=== PATIENT | female | born 1955 | race African-American/Black ===

== ENCOUNTER 2018-11-17 14:17 | Inpatient (IN) | payer BC ==
[2018-11-17] MEDS ORDERED: NORMAL SALINE 1000 ML 1,000 ML IV ONE (14:47)
--- NOTE | 2018-11-17 14:48 | ER Document Report ---
ED Medical Screen (RME) - General Chief Complaint: High Blood Sugar Stated Complaint: BLOOD SUGAR ISSUES Time Seen by Provider: 11/17/18 14:45 TRAVEL OUTSIDE OF THE [place] 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 states her blood sugar today was elevated ate [place] prior to her arrival here - Related Data Allergies/Adverse Reactions: No Known Allergies Allergy (Verified 11/17/18 14:18) Review of Systems - Review of Systems Constitutional: Other - elevated blood sugar Physical Exam - Vital signs Vitals: Temp Pulse Resp BP Pulse Ox 99.0 F 108 H 18 149/68 H 92 11/17/18 14:27 11/17/18 14:27 11/17/18 14:27 11/17/18 14:27 11/17/18 14:27 - Abdominal Inspection: Morbidly Obese Course - Vital Signs Vital signs: Temp Pulse Resp BP Pulse Ox 99.0 F 108 H 18 149/68 H 92 11/17/18 14:27 11/17/18 14:27 11/17/18 14:27 11/17/18 14:27 11/17/18 14:27
[2018-11-17 15:23] LABS: APPEARANCE,URINE SLIGHTLY-CLOUDY; BILIRUBIN,URINE NEGATIVE (NEGATIVE); COLOR,URINE STRAW; GLUCOSE, URINE >=500 mg/dL (NEGATIVE); KETONES,URINE NEGATIVE (NEGATIVE); LEUKOCYTE ESTERASE,URINE SMALL (NEGATIVE); NITRITE,URINE NEGATIVE (NEGATIVE); PROTEIN,URINE NEGATIVE (NEGATIVE); URINE SPECIFIC GRAVITY 1.029; UROBILINOGEN,URINE NEGATIVE mg/dL (<2.0)
[2018-11-17 15:23] LABS: VENOUS BLOOD BASE EXCESS 1.4 mmol/L; VENOUS BLOOD HCO3 29.6 mmol/L (20-32); VENOUS BLOOD PCO2 63.6 mmHg (35-63); VENOUS BLOOD PH 7.29 (7.30-7.42)
[2018-11-17 15:24] LABS: ABSOLUTE EOSINOPHILS # (AUTO) 0.1 10^3/uL (0.0-0.6); ABSOLUTE MONOCYTES (AUTO) 0.6 10^3/uL (0.1-1.4); ABSOLUTE NEUT (AUTO) 5.9 10^3/uL (1.7-8.2); BASOPHILS % (AUTO) 0.4 % (0-2); EOSINOPHILS % (AUTO) 1.5 % (0-6); HEMATOCRIT 36.9 % (36.0-47.0); HEMOGLOBIN 11.7 g/dL (12.0-15.5); LYMPHOCYTES % (AUTO) 22.9 % (13-45); MEAN CORPUSCULAR HEMOGLOBIN 28.6 pg (27.0-33.4); MEAN CORPUSCULAR HGB CONC 31.7 g/dL (32.0-36.0); MEAN CORPUSCULAR VOLUME 90 fl (80-97); MONOCYTES % (AUTO) 7.2 % (3-13); PLATELET COUNT 304 10^3/uL (150-450); RED CELL DISTRIBUTION WIDTH 14.6 % (11.5-14.0); TOTAL CELLS COUNTED % (AUTO) 100 %; WHITE BLOOD COUNT 8.7 10^3/uL (4.0-10.5)
[2018-11-17 15:40] LABS: ALANINE AMINOTRANSFERASE 17 U/L (9-52); ALBUMIN 3.9 g/dL (3.5-5.0); ALKALINE PHOSPHATASE 92 U/L (38-126); ANION GAP 11 (5-19); ASPARTATE AMINO TRANSFERASE 24 U/L (14-36); BILIRUBIN,DIRECT 0.3 mg/dL (0.0-0.4); BILIRUBIN,TOTAL 0.5 mg/dL (0.2-1.3); BLOOD UREA NITROGEN 13 mg/dL (7-20); CALCIUM 9.6 mg/dL (8.4-10.2); CARBON DIOXIDE 31 mmol/L (22-30); CHLORIDE 96 mmol/L (98-107); LIPASE 255.3 U/L (23-300); POTASSIUM 4.7 mmol/L (3.6-5.0); SODIUM 137.5 mmol/L (137-145); TOTAL PROTEIN 7.3 g/dL (6.3-8.2)
[2018-11-17 15:57] LABS: GLUCOSE 588 mg/dL (75-110)
[2018-11-17] MEDS ORDERED: INSULIN REG, HUMAN 100 UNIT/ML 3 ML VIAL (PYX) IV ONE (16:43)
[2018-11-17] MEDS ORDERED: ONDANSETRON HCL INJ/PF 4 MG/2 ML SDV IV PRN (17:07)
[2018-11-17] MEDS ORDERED: ACETAMINOPHEN 325 MG TABLET PO PRN (17:07)
[2018-11-17] MEDS ORDERED: DEXTROSE 50%-WATER 25 GM/50 ML DISP.SYRIN IV PRN ×2 (17:11)
[2018-11-17] MEDS ORDERED: GLUCAGON,HUMAN RECOMB 1 MG INJ IM PRN (17:11)
[2018-11-17] MEDS ORDERED: DEXTROSE 40% GEL 15 GM TUBE PO PRN ×2 (17:11)
[2018-11-17] MEDS ORDERED: GUAIFENESIN/CODEINE PHOS 100-10 MG/ 5 ML UDC PO PRN (17:12)
--- NOTE | 2018-11-17 17:39 | PDOC H&P ---
History of Present Illness Admission Date/PCP: 11/17/2018 Patient complains of: Cough and right ear pain. History of Present Illness: JEROME THAKUR is a 63 year old female with history of morbid obesity diabetes mellitus hypertension, sleep apnea on CPAP at night, narcolepsy, hyperlipidemia, osteoarthritis and diabetes came to the emergency room with complaints of cough and right ear pain. The ER physician called me for medical admission because the blood sugar is 558. No insulin was given prior to call for the admission. Patient's hemoglobin A1c came back as 10.2. He went to talk to the patient morbidly obese patient comfortably in the chair crying she said she does want to go through these health problems so often. After a few minutes of toxic calm down and she able to give a good history she said she had a nonproductive cough for the last few days. Pain pain scale is 2-3, nagging pain right ear examination by me and the ER physician found no acute pathology. And is to put the patient in telemetry for observation for blood sugar controls. Past Medical History Cardiac Medical History: Reports: Hyperlipidema, Hypertension Endocrine Medical History: Reports: Diabetes Mellitus Type 2 Past Surgical History Past Surgical History: Reports: Section, Hysterectomy Social History Smoking Status: Never Smoker Frequency of Alcohol Use: Rare Hx Recreational Drug Use: No Drugs: None - Advance Directive Resuscitation Status: Do Not Resuscitate Family History Parental Family History Reviewed: Yes - Family history of diabetes mellitus Children Family History Reviewed: Yes Sibling(s) Family History Reviewed.: Yes Medication/Allergy Allergies/Adverse Reactions: No Known Allergies Allergy (Verified 11/17/18 14:18) Review of Systems Constitutional: PRESENT: fatigue, weakness. ABSENT: fever(s), headache(s), night sweats Eyes: ABSENT: visual disturbances Ears: ABSENT: hearing changes Nose, Mouth, and Throat: ABSENT: mouth pain, sore throat Cardiovascular: ABSENT: dyspnea on exertion, orthropnea, palpitations Respiratory: ABSENT: dyspnea, hemoptysis Gastrointestinal: ABSENT: abdominal pain, constipation, nausea, vomiting Genitourinary: PRESENT: other - She is complaining of increased thirst units are associated with increased urination. Neurological: ABSENT: abnormal gait, abnormal speech, confusion, dizziness, focal weakness, syncope Psychiatric: PRESENT: anxiety Physical Exam Vital Signs: Temp Pulse Resp BP Pulse Ox 99.0 F 108 H 16 173/94 H 97 11/17/18 14:27 11/17/18 14:27 11/17/18 15:17 11/17/18 15:17 11/17/18 15:17 Intake & Output 11/16/18 11/17/18 11/18/18 06:59 06:59 06:59 Intake Total 1000 Balance 1000 Weight 144.5 kg General appearance: PRESENT: mild distress, morbidly obese Head exam: PRESENT: atraumatic Eye exam: PRESENT: PERRLA Mouth exam: PRESENT: moist, tongue midline Neck exam: ABSENT: carotid bruit, JVD, lymphadenopathy, thyromegaly Respiratory exam: PRESENT: clear to auscultation tomas. ABSENT: rales, rhonchi, wheezes Cardiovascular exam: PRESENT: tachycardia GI/Abdominal exam: PRESENT: normal bowel sounds, soft. ABSENT: distended, guarding, mass, organolmegaly, rebound, tenderness Extremities exam: PRESENT: +1 edema Neurological exam: PRESENT: alert, awake, oriented to person, oriented to place, oriented to time, oriented to situation, CN II-XII grossly intact. ABSENT: motor sensory deficit Psychiatric exam: PRESENT: appropriate affect, normal mood. ABSENT: homicidal ideation, suicidal ideation Results Laboratory Results: 11/17/18 15:07 11/17/18 15:07 11/17/18 11/17/18 11/17/18 15:00 15:07 15:07 WBC 8.7 RBC 4.10 Hgb 11.7 L Hct 36.9 MCV 90 MCH 28.6 MCHC 31.7 L RDW 14.6 H Plt Count 304 Seg Neutrophils % 68.0 Lymphocytes % 22.9 Monocytes % 7.2 Eosinophils % 1.5 Basophils % 0.4 Absolute Neutrophils 5.9 Absolute Lymphocytes 2.0 Absolute Monocytes 0.6 Absolute Eosinophils 0.1 Absolute Basophils 0.0 VBG pH VBG pCO2 VBG HCO3 VBG Base Excess Sodium 137.5 Potassium 4.7 Chloride 96 L Carbon Dioxide 31 H Anion Gap 11 BUN 13 Creatinine 0.77 Est GFR ( Amer) > 60 Est GFR (Non-Af Amer) > 60 Glucose 588 H* Calcium 9.6 Total Bilirubin 0.5 AST 24 ALT 17 Alkaline Phosphatase 92 Total Protein 7.3 Albumin 3.9 Lipase 255.3 Urine Color STRAW Urine Appearance SLIGHTLY-CLOUDY Urine pH 6.0 Ur Specific [place] 1.029 Urine Protein NEGATIVE Urine Glucose (UA) >=500 H Urine Ketones NEGATIVE Urine Blood SMALL H Urine Nitrite NEGATIVE Ur Leukocyte Esterase SMALL H Urine WBC (Auto) 8 Urine RBC (Auto) 5 11/17/18 15:07 WBC RBC Hgb Hct MCV MCH MCHC RDW Plt Count Seg Neutrophils % Lymphocytes % Monocytes % Eosinophils % Basophils % Absolute Neutrophils Absolute Lymphocytes Absolute Monocytes Absolute Eosinophils Absolute Basophils VBG pH 7.29 L VBG pCO2 63.6 H VBG HCO3 29.6 VBG Base Excess 1.4 Sodium Potassium Chloride Carbon Dioxide Anion Gap BUN Creatinine Est GFR ( Amer) Est GFR (Non-Af Amer) Glucose Calcium Total Bilirubin AST ALT Alkaline Phosphatase Total Protein Albumin Lipase Urine Color Urine Appearance Urine pH Ur Specific [place] Urine Protein Urine Glucose (UA) Urine Ketones Urine Blood Urine Nitrite Ur Leukocyte Esterase Urine WBC (Auto) Urine RBC (Auto) Assessment and Plan - Diagnosis (1) Uncontrolled diabetes mellitus Is this a current diagnosis for this admission?: Yes Plan: 11/17/2018-patient's blood sugar in the ER 558 .patient is going to be admitted to telemetry as observation, placed on diabetic diet ,dietary consult was requested. Diet exercise weight loss lifestyle modifications are discussed with the patient. Started on insulin sliding scale before meals and at bedtime and also started on Lantus 40 units twice a day. GI prophylaxis DVT prophylaxis implemented started on aspirin and atorvastatin. And JAMARI inhibitor lisinopril was also started. Patient says she is very much compliant with her diabetic medications at home. Globin A1c in the ER is 10.2. (2) Uncontrolled hypertension Is this a current diagnosis for this admission?: Yes Plan: 11/17/2018-latest blood pressure in the ER is 173/94 with heart rate of 108. Patient has history of hypertension. To start on lisinopril 10 mg p.o. daily. Check the blood pressures on regular basis. (3) Sleep apnea Is this a current diagnosis for this admission?: Yes Plan: 11/17/2018-patient is given the history of obstructive sleep apnea using CPAP at night. Plan to resume the sleep Orders during the hospital stay. (4) Morbid obesity with BMI of 40.0-44.9, adult Is this a current diagnosis for this admission?: No Plan: 11/17/2018-morbid obesity BMI is more than 40. Diet exercise weight loss lifestyle modifications are discussed with the patient. Dietary consult was requested. - Time Time Spent with patient: 15-24 minutes Anticipated discharge: Home
--- NOTE | 2018-11-17 17:52 | RADIOLOGY REPORT (SQ) ---
EXAM DESCRIPTION: CHEST 2 VIEWS COMPLETED DATE/TIME: 11/17/2018 5:48 pm REASON FOR STUDY: shortness of breath COMPARISON: None. EXAM PARAMETERS: NUMBER OF VIEWS: two views TECHNIQUE: Digital Frontal and Lateral radiographic views of the chest acquired. RADIATION DOSE: NA LIMITATIONS: none FINDINGS: LUNGS AND PLEURA: No opacities, masses or pneumothorax. No pleural effusion. MEDIASTINUM AND HILAR STRUCTURES: No masses or contour abnormalities. HEART AND VASCULAR STRUCTURES: Heart normal size. No evidence for failure. BONES: No acute findings. HARDWARE: None in the chest. OTHER: No other significant finding. IMPRESSION: NO ACUTE RADIOGRAPHIC FINDING IN THE CHEST. TECHNICAL DOCUMENTATION: JOB ID: [id number] [employer]- All Rights Reserved Reading location - IP/workstation name: [email or web address]
[2018-11-17] MEDS ORDERED: INSULIN GLARGINE,HUM.REC.ANLOG 1,000 UNIT/10 ML VIAL SUBCUT SCH (18:00)
[2018-11-17] MEDS ORDERED: INSULIN GLARGINE,HUM.REC.ANLOG 1,000 UNIT/10 ML VIAL (PYX) SUBCUT PRN (18:14)
[2018-11-17] MEDS ORDERED: INSULIN GLARGINE,HUM.REC.ANLOG 1,000 UNIT/10 ML VIAL SUBCUT ONE (18:30)
[2018-11-17] MEDS: DOCUSATE SODIUM 100 MG CAPSULE PO SCH (18:37)
[2018-11-17] MEDS ORDERED: LISINOPRIL 10 MG TABLET PO ONE (19:00)
--- NOTE | 2018-11-17 19:12 | ER Document Report ---
Entered by MARSHAL YBARRA SCRIBE 11/17/18 1514 Acting as scribe for:KUNAL GRIER MD ED Blood Sugar Problem - General Chief Complaint: High Blood Sugar Stated Complaint: BLOOD SUGAR ISSUES Time Seen by Provider: 11/17/18 14:45 Mode of Arrival: Ambulatory Information source: Patient Notes: Patient is a 63 year old female with HTN, hyperlipidemia, type 2 diabetes, presents to the emergency department complaining an elevated blood sugar. Patient states for the last 1.5 weeks she has had frequent urination and increased thirst. 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 Patient is currently prescribed Metformin, glucoside, victoza and provigil. She states that she used to be on Lantus, but it caused her to itch at the injection site and other unacceptable side effects. TRAVEL OUTSIDE OF THE [place] IN LAST 30 DAYS: No - Related Data Allergies/Adverse Reactions: No Known Allergies Allergy (Verified 11/17/18 14:18) Past Medical History - General Information source: Patient - Social History Smoking Status: Former Smoker Cigarette use (# per day): No Chew tobacco use (# tins/day): No Frequency of alcohol use: Occasional Drug Abuse: None Family History: Reviewed & Not Pertinent Patient has suicidal ideation: No Patient has homicidal ideation: No - Past Medical History Cardiac Medical History: Reports: Hx Hypercholesterolemia, Hx Hypertension Endocrine Medical History: Reports: Hx Diabetes Mellitus Type 2 Past Surgical History: Reports: Hx Section - x3, Hx Hysterectomy Review of Systems - Review of Systems Constitutional: See HPI EENT: No symptoms reported Cardiovascular: No symptoms reported Respiratory: No symptoms reported Gastrointestinal: No symptoms reported Genitourinary: See HPI, Frequency Female Genitourinary: No symptoms reported Musculoskeletal: No symptoms reported Skin: No symptoms reported Hematologic/Lymphatic: No symptoms reported Neurological/Psychological: No symptoms reported -: Yes All other systems reviewed and negative Physical Exam - Vital signs Vitals: Temp Pulse Resp BP Pulse Ox 99.0 F 108 H 18 149/68 H 92 11/17/18 14:27 11/17/18 14:27 11/17/18 14:27 11/17/18 14:27 11/17/18 14:27 - Notes Notes: GENERAL: Alert, interacts well. No acute distress. HEAD: Normocephalic, atraumatic. EYES: Pupils equal, round, and reactive to light. Extraocular movements intact. ENT: Oral mucosa moist, tongue midline. NECK: Full range of motion. Supple. Trachea midline. LUNGS: Clear to auscultation bilaterally, no wheezes, rales, or rhonchi. No respiratory distress. HEART: Regular rate and rhythm. No murmurs, gallops, or rubs. ABDOMEN: Soft, morbidly obese, non-tender. Non-distended. Bowel sounds present in all 4 quadrants. No guarding, rigidity, or rebound. EXTREMITIES: Moves all 4 extremities spontaneously. NEUROLOGICAL: Alert and oriented x3. Normal speech. PSYCH: Normal affect, normal mood. SKIN: Warm, dry, normal turgor. No rashes or lesions noted. Course - Vital Signs Vital signs: Temp Pulse Resp BP Pulse Ox 99.0 F 108 H 16 173/94 H 97 11/17/18 14:27 11/17/18 14:27 11/17/18 15:17 11/17/18 15:17 11/17/18 15:17 - Laboratory Result Diagrams: 11/17/18 15:07 11/17/18 15:07 Laboratory results interpreted by me: 11/17/18 11/17/18 11/17/18 15:00 15:07 15:07 Hgb 11.7 L MCHC 31.7 L RDW 14.6 H VBG pH VBG pCO2 Chloride 96 L Carbon Dioxide 31 H Glucose 588 H* Hemoglobin A1c % Urine Glucose (UA) >=500 H Urine Blood SMALL H Ur Leukocyte Esterase SMALL H 11/17/18 11/17/18 15:07 15:07 Hgb MCHC RDW VBG pH 7.29 L VBG pCO2 63.6 H Chloride Carbon Dioxide Glucose Hemoglobin A1c % 10.2 H Urine Glucose (UA) Urine Blood Ur Leukocyte Esterase - EKG Interpretation by Mo EKG shows normal: Sinus rhythm, [place], Intervals, QRS Complexes, ST-T Waves Rate: Normal - 94 Rhythm: NSR, APC's Monroe/QRS: Left axis deviation - Consults Dr. 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
[2018-11-17] MEDS: FAMOTIDINE 20 MG TABLET PO SCH (21:42)
[2018-11-17] MEDS: ATORVASTATIN CALCIUM 10 MG TABLET PO SCH (21:43)
[2018-11-17] MEDS: INSULIN REG, HUMAN 100 UNIT/ML 3 ML VIAL (PYX) SUBCUT SCH (21:43)
--- NOTE | 2018-11-17 23:59 | EKG REPORT ---
SEVERITY:- BORDERLINE ECG - SINUS RHYTHM ATRIAL PREMATURE COMPLEX BORDERLINE LEFT AXIS DEVIATION CONSIDER ANTERIOR INFARCT : Confirmed by: Lindsey Alejandre 17-Nov-2018 23:58:54
[2018-11-18 05:12] LABS: ABSOLUTE EOSINOPHILS # (AUTO) 0.1 10^3/uL (0.0-0.6); ABSOLUTE LYMPHOCYTES (AUTO) 2.5 10^3/uL (0.5-4.7); ABSOLUTE MONOCYTES (AUTO) 0.9 10^3/uL (0.1-1.4); ABSOLUTE NEUT (AUTO) 5.4 10^3/uL (1.7-8.2); BASOPHILS % (AUTO) 0.5 % (0-2); EOSINOPHILS % (AUTO) 1.7 % (0-6); HEMATOCRIT 34.2 % (36.0-47.0); HEMOGLOBIN 11.1 g/dL (12.0-15.5); LYMPHOCYTES % (AUTO) 27.9 % (13-45); MEAN CORPUSCULAR HEMOGLOBIN 28.4 pg (27.0-33.4); MEAN CORPUSCULAR HGB CONC 32.4 g/dL (32.0-36.0); MEAN CORPUSCULAR VOLUME 88 fl (80-97); MONOCYTES % (AUTO) 9.6 % (3-13); PLATELET COUNT 267 10^3/uL (150-450); RED BLOOD COUNT 3.91 10^6/uL (3.72-5.28); RED CELL DISTRIBUTION WIDTH 14.6 % (11.5-14.0); SEGMENTED NEUTROPHILS % (AUTO) 60.3 % (42-78); TOTAL CELLS COUNTED % (AUTO) 100 %; WHITE BLOOD COUNT 8.9 10^3/uL (4.0-10.5)
[2018-11-18 05:35] LABS: ALANINE AMINOTRANSFERASE 17 U/L (9-52); ALBUMIN 3.2 g/dL (3.5-5.0); ALKALINE PHOSPHATASE 82 U/L (38-126); ANION GAP 9 (5-19); ASPARTATE AMINO TRANSFERASE 12 U/L (14-36); BILIRUBIN,DIRECT 0.2 mg/dL (0.0-0.4); BILIRUBIN,TOTAL 0.3 mg/dL (0.2-1.3); BLOOD UREA NITROGEN 12 mg/dL (7-20); CALCIUM 8.9 mg/dL (8.4-10.2); CARBON DIOXIDE 26 mmol/L (22-30); CHLORIDE 104 mmol/L (98-107); CHOLESTEROL 172.12 mg/dL (0-200); CREATINE KINASE 54 U/L (30-135); GLUCOSE 317 mg/dL (75-110); POTASSIUM 3.9 mmol/L (3.6-5.0); TOTAL PROTEIN 6.1 g/dL (6.3-8.2); TRIGLYCERIDES 127 mg/dL (<150)
[2018-11-18 05:41] LABS: CREATINE KINASE MB 0.48 ng/mL (<4.55)
[2018-11-18 05:46] LABS: DIRECT LDL 109 mg/dL (<100)
[2018-11-18] MEDS: INSULIN REG, HUMAN 100 UNIT/ML 3 ML VIAL (PYX) SUBCUT SCH ×4 (07:46→23:00)
[2018-11-18] MEDS: DOCUSATE SODIUM 100 MG CAPSULE PO SCH ×2 (09:36→17:05)
[2018-11-18] MEDS: FUROSEMIDE 40 MG TABLET PO SCH (09:36)
[2018-11-18] MEDS: ASPIRIN 81 MG TABLET, CHEWABLE PO SCH (09:36)
[2018-11-18] MEDS: FAMOTIDINE 20 MG TABLET PO SCH ×2 (09:37→23:00)
[2018-11-18] MEDS: ENOXAPARIN SODIUM INJ 40 MG/0.4 ML DISP.SYRIN SUBCUT SCH (09:37)
[2018-11-18] MEDS: LISINOPRIL 10 MG TABLET PO SCH (09:37)
[2018-11-18] MEDS: INSULIN GLARGINE,HUM.REC.ANLOG 1,000 UNIT/10 ML VIAL SUBCUT SCH ×2 (11:35→17:05)
--- NOTE | 2018-11-18 13:07 | PDOC PROGRESS REPORT ---
Subjective Progress Note for:: 11/18/18 Subjective:: No adverse events overnight. She was resting on CPAP whenever I came into the room. Blood sugars have been in the low 300s for the most part. She was not on insulin previously but was on 2 or 3 different oral hypoglycemics. Blood pressures have improved some. Reason For Visit: UNCONTROLLED DM Physical Exam Vital Signs: Temp Pulse Resp BP Pulse Ox 98.1 F 105 H 21 H 144/78 H 98 11/18/18 11:00 11/18/18 11:00 11/18/18 11:00 11/18/18 11:00 11/18/18 11:00 Intake & Output 11/17/18 11/18/18 11/19/18 06:59 06:59 06:59 Intake Total 1120 Balance 1120 Weight 144.5 kg General appearance: PRESENT: mild distress, morbidly obese Neck exam: ABSENT: carotid bruit, JVD, lymphadenopathy, thyromegaly Respiratory exam: PRESENT: clear to auscultation tomas. ABSENT: rales, rhonchi, wheezes Cardiovascular exam: PRESENT: RRR S1 S2 GI/Abdominal exam: PRESENT: normal bowel sounds, soft. ABSENT: distended, guarding, mass, organolmegaly, rebound, tenderness Extremities exam: PRESENT: +1 edema Neurological exam: PRESENT: alert, awake, oriented to person, oriented to place, oriented to time, oriented to situation Results Laboratory Results: 11/18/18 04:58 11/18/18 04:58 11/17/18 11/17/18 11/17/18 15:00 15:07 15:07 WBC 8.7 RBC 4.10 Hgb 11.7 L Hct 36.9 MCV 90 MCH 28.6 MCHC 31.7 L RDW 14.6 H Plt Count 304 Seg Neutrophils % 68.0 Lymphocytes % 22.9 Monocytes % 7.2 Eosinophils % 1.5 Basophils % 0.4 Absolute Neutrophils 5.9 Absolute Lymphocytes 2.0 Absolute Monocytes 0.6 Absolute Eosinophils 0.1 Absolute Basophils 0.0 VBG pH VBG pCO2 VBG HCO3 VBG Base Excess Sodium 137.5 Potassium 4.7 Chloride 96 L Carbon Dioxide 31 H Anion Gap 11 BUN 13 Creatinine 0.77 Est GFR ( Amer) > 60 Est GFR (Non-Af Amer) > 60 Glucose 588 H* Calcium 9.6 Magnesium Total Bilirubin 0.5 AST 24 ALT 17 Alkaline Phosphatase 92 Total Protein 7.3 Albumin 3.9 Triglycerides Cholesterol LDL Cholesterol Direct VLDL Cholesterol HDL Cholesterol Lipase 255.3 TSH Urine Color STRAW Urine Appearance SLIGHTLY-CLOUDY Urine pH 6.0 Ur Specific [place] 1.029 Urine Protein NEGATIVE Urine Glucose (UA) >=500 H Urine Ketones NEGATIVE Urine Blood SMALL H Urine Nitrite NEGATIVE Ur Leukocyte Esterase SMALL H Urine WBC (Auto) 8 Urine RBC (Auto) 5 11/17/18 11/18/18 11/18/18 15:07 04:58 04:58 WBC 8.9 RBC 3.91 Hgb 11.1 L Hct 34.2 L MCV 88 MCH 28.4 MCHC 32.4 RDW 14.6 H Plt Count 267 Seg Neutrophils % 60.3 Lymphocytes % 27.9 Monocytes % 9.6 Eosinophils % 1.7 Basophils % 0.5 Absolute Neutrophils 5.4 Absolute Lymphocytes 2.5 Absolute Monocytes 0.9 Absolute Eosinophils 0.1 Absolute Basophils 0.0 VBG pH 7.29 L VBG pCO2 63.6 H VBG HCO3 29.6 VBG Base Excess 1.4 Sodium 139.0 Potassium 3.9 Chloride 104 Carbon Dioxide 26 Anion Gap 9 BUN 12 Creatinine 0.64 Est GFR ( Amer) > 60 Est GFR (Non-Af Amer) > 60 Glucose 317 H Calcium 8.9 Magnesium 1.8 Total Bilirubin 0.3 AST 12 L ALT 17 Alkaline Phosphatase 82 Total Protein 6.1 L Albumin 3.2 L Triglycerides 127 Cholesterol 172.12 LDL Cholesterol Direct 109 H VLDL Cholesterol 25.0 HDL Cholesterol 51 Lipase TSH Urine Color Urine Appearance Urine pH Ur Specific [place] Urine Protein Urine Glucose (UA) Urine Ketones Urine Blood Urine Nitrite Ur Leukocyte Esterase Urine WBC (Auto) Urine RBC (Auto) 11/18/18 04:58 WBC RBC Hgb Hct MCV MCH MCHC RDW Plt Count Seg Neutrophils % Lymphocytes % Monocytes % Eosinophils % Basophils % Absolute Neutrophils Absolute Lymphocytes Absolute Monocytes Absolute Eosinophils Absolute Basophils VBG pH VBG pCO2 VBG HCO3 VBG Base Excess Sodium Potassium Chloride Carbon Dioxide Anion Gap BUN Creatinine Est GFR ( Amer) Est GFR (Non-Af Amer) Glucose Calcium Magnesium Total Bilirubin AST ALT Alkaline Phosphatase Total Protein Albumin Triglycerides Cholesterol LDL Cholesterol Direct VLDL Cholesterol HDL Cholesterol Lipase TSH 1.54 Urine Color Urine Appearance Urine pH Ur Specific [place] Urine Protein Urine Glucose (UA) Urine Ketones Urine Blood Urine Nitrite Ur Leukocyte Esterase Urine WBC (Auto) Urine RBC (Auto) 11/17/18 15:00 Clean Catch Midstream Urine Culture - Final Group B Beta Streptococcus 11/17/18 11/17/18 11/17/18 15:07 15:07 20:50 Creatine Kinase 59 67 CK-MB (CK-2) 0.50 NT-Pro-B Natriuret Pep 11/17/18 11/18/18 11/18/18 20:50 04:58 04:58 Creatine Kinase 54 CK-MB (CK-2) 0.54 0.48 NT-Pro-B Natriuret Pep 64 Impressions: Chest X-Ray 11/17/18 00:00 IMPRESSION: NO ACUTE RADIOGRAPHIC FINDING IN THE CHEST. Assessment and Plan - Diagnosis (1) Type 2 diabetes mellitus with hyperglycemia Qualifiers: Diabetes mellitus [facility] insulin use: without [facility] use Qualified Code(s): E11.65 - Type 2 diabetes mellitus with hyperglycemia Is this a current diagnosis for this admission?: Yes Plan: We have started on Lantus twice daily with a sliding scale. I told her that she will probably need to continue on insulin after discharge because her hemoglobin A1c was 10 and she already says she is having some changes in sensation in her feet. She does not have a primary care provider and I strongly encouraged her to make that her top priority when she is discharged. (2) Hypertension Qualifiers: Hypertension type: essential hypertension Qualified Code(s): I10 - Essential (primary) hypertension Is this a current diagnosis for this admission?: Yes Plan: She was started on lisinopril her blood pressures have improved. (3) Morbid obesity with BMI of 40.0-44.9, adult Is this a current diagnosis for this admission?: Yes Plan: Strongly encouraged lifestyle modification (4) Sleep apnea Is this a current diagnosis for this admission?: Yes Plan: Continue CPAP at night - Time Time Spent with patient: 25-34 minutes
[2018-11-18] MEDS: ATORVASTATIN CALCIUM 10 MG TABLET PO SCH (23:00)
[2018-11-19] MEDS: HYDROCODONE/ACETAMINOPHEN 10-325 MG TABLET PO PRN (04:27)
[2018-11-19] MEDS: INSULIN REG, HUMAN 100 UNIT/ML 3 ML VIAL (PYX) SUBCUT SCH ×4 (07:37→22:03)
[2018-11-19] MEDS ORDERED: GLUCAGON,HUMAN RECOMB 1 MG INJ IM PRN (08:01)
[2018-11-19] MEDS ORDERED: DEXTROSE 40% GEL 15 GM TUBE PO PRN ×2 (08:01)
[2018-11-19] MEDS ORDERED: DEXTROSE 50%-WATER 25 GM/50 ML DISP.SYRIN IV PRN ×2 (08:01)
[2018-11-19] MEDS: INSULIN GLARGINE,HUM.REC.ANLOG 1,000 UNIT/10 ML VIAL SUBCUT SCH ×2 (09:50→17:20)
[2018-11-19] MEDS: FAMOTIDINE 20 MG TABLET PO SCH ×2 (09:51→22:00)
[2018-11-19] MEDS: FUROSEMIDE 40 MG TABLET PO SCH (09:51)
[2018-11-19] MEDS: ASPIRIN 81 MG TABLET, CHEWABLE PO SCH (09:51)
[2018-11-19] MEDS: METOPROLOL TARTRATE 25 MG TABLET PO SCH ×2 (09:51→22:00)
[2018-11-19] MEDS: DOCUSATE SODIUM 100 MG CAPSULE PO SCH ×2 (09:51→17:20)
[2018-11-19] MEDS: LISINOPRIL 10 MG TABLET PO SCH (09:51)
[2018-11-19] MEDS: ENOXAPARIN SODIUM INJ 40 MG/0.4 ML DISP.SYRIN SUBCUT SCH (09:52)
[2018-11-19] MEDS: INSULIN LISPRO 100 UNIT/ML 3 ML VIAL SUBCUT SCH ×2 (11:43→16:24)
--- NOTE | 2018-11-19 21:00 | PDOC PROGRESS REPORT ---
Subjective Progress Note for:: 11/19/18 Subjective:: The patient is resting in her bed. She states she still has markedly uncontrolled blood sugars and overall just is not feeling well. She denies fever or shaking chills. No chest pain or heart palpitations. No nausea vomiting or diarrhea. No urinary complaints. Reason For Visit: UNCONTROLLED DM Physical Exam Vital Signs: Temp Pulse Resp BP Pulse Ox 98.5 F 68 20 119/82 95 11/19/18 19:54 11/19/18 19:54 11/19/18 16:03 11/19/18 19:54 11/19/18 19:54 Intake & Output 11/18/18 11/19/18 11/20/18 06:59 06:59 06:59 Intake Total 1120 2104 1328 Balance 1120 2104 1328 Weight 144.5 kg 143.8 kg General appearance: PRESENT: no acute distress, morbidly obese, well-nourished Head exam: PRESENT: atraumatic, normocephalic Mouth exam: PRESENT: moist, tongue midline Respiratory exam: PRESENT: decreased breath sounds, other - This exam was hindered due to her body habitus Cardiovascular exam: PRESENT: RRR. ABSENT: diastolic murmur, rubs, systolic murmur GI/Abdominal exam: PRESENT: normal bowel sounds, soft. ABSENT: distended, guarding, mass, organolmegaly, rebound, tenderness Rectal exam: PRESENT: deferred Extremities exam: PRESENT: full ROM. ABSENT: calf tenderness, clubbing, pedal edema Neurological exam: PRESENT: alert, awake, oriented to person, oriented to place, oriented to time, oriented to situation, CN II-XII grossly intact. ABSENT: motor sensory deficit Psychiatric exam: PRESENT: appropriate affect, normal mood. ABSENT: homicidal ideation, suicidal ideation Skin exam: PRESENT: dry, intact, warm. ABSENT: cyanosis, rash Results Laboratory Results: 11/18/18 04:58 11/18/18 04:58 11/17/18 11/17/18 11/17/18 15:07 15:07 20:50 Creatine Kinase 59 67 CK-MB (CK-2) 0.50 NT-Pro-B Natriuret Pep 11/17/18 11/18/18 11/18/18 20:50 04:58 04:58 Creatine Kinase 54 CK-MB (CK-2) 0.54 0.48 NT-Pro-B Natriuret Pep 64 Impressions: Chest X-Ray 11/17/18 00:00 IMPRESSION: NO ACUTE RADIOGRAPHIC FINDING IN THE CHEST. Assessment and Plan - Diagnosis (1) Uncontrolled diabetes mellitus Is this a current diagnosis for this admission?: Yes Plan: The patient had been started on 30 units of Lantus. Blood sugars were still remarkably uncontrolled. I am going to add 10 units of NovoLog 3 times daily AC. Overall the patient has just moved to this area. She does not have an established physician and I feel like it is important to get her blood sugar at least under more reasonable control prior to getting her out of here. I am g oipola to get the discharge planners to work on getting her set up with a physician. She just moved to this area this past week. (2) Uncontrolled hypertension Is this a current diagnosis for this admission?: Yes Plan: Improving. Continue to titrate medications as needed. (3) Morbid obesity with BMI of 50.0-59.9, adult Is this a current diagnosis for this admission?: Yes Plan: Certainly she needs to lose weight and this is going to contribute to all of her issues. (4) Sleep apnea Is this a current diagnosis for this admission?: Yes Plan: Continue CPAP (5) Anemia Is this a current diagnosis for this admission?: Yes Plan: Likely due to chronic disease. Her hemoglobin is stable (6) Do not resuscitate Is this a current diagnosis for this admission?: Yes - Time Time Spent with patient: 35 or more minutes - Inpatient Certification Medical Necessity: Other - The patient will be changed to inpatient status. She has super morbid obesity and is at high risk of an adverse event. She has not yet established care with primary care and her blood sugars have been markedly uncontrolled. I am adding mealtime NovoLog and I want to make sure that the patient can inject her own insulin and that her blood sugar is not too high to cause a significant adverse event in the outpatient setting. Hopefully she can go home tomorrow.
[2018-11-19] MEDS: ATORVASTATIN CALCIUM 10 MG TABLET PO SCH (22:01)
[2018-11-20] MEDS: HYDROCODONE/ACETAMINOPHEN 10-325 MG TABLET PO PRN (03:41)
[2018-11-20 06:18] LABS: ABSOLUTE EOSINOPHILS # (AUTO) 0.1 10^3/uL (0.0-0.6); ABSOLUTE LYMPHOCYTES (AUTO) 2.1 10^3/uL (0.5-4.7); ABSOLUTE MONOCYTES (AUTO) 0.6 10^3/uL (0.1-1.4); ABSOLUTE NEUT (AUTO) 3.8 10^3/uL (1.7-8.2); BASOPHILS % (AUTO) 0.5 % (0-2); EOSINOPHILS % (AUTO) 1.8 % (0-6); HEMATOCRIT 33.3 % (36.0-47.0); HEMOGLOBIN 10.8 g/dL (12.0-15.5); LYMPHOCYTES % (AUTO) 31.5 % (13-45); MEAN CORPUSCULAR HEMOGLOBIN 28.4 pg (27.0-33.4); MEAN CORPUSCULAR HGB CONC 32.6 g/dL (32.0-36.0); MEAN CORPUSCULAR VOLUME 87 fl (80-97); MONOCYTES % (AUTO) 9.2 % (3-13); PLATELET COUNT 261 10^3/uL (150-450); RED BLOOD COUNT 3.82 10^6/uL (3.72-5.28); RED CELL DISTRIBUTION WIDTH 14.2 % (11.5-14.0); TOTAL CELLS COUNTED % (AUTO) 100 %; WHITE BLOOD COUNT 6.6 10^3/uL (4.0-10.5)
[2018-11-20 06:46] LABS: ALBUMIN 3.1 g/dL (3.5-5.0); ANION GAP 7 (5-19); BLOOD UREA NITROGEN 20 mg/dL (7-20); CALCIUM 9.1 mg/dL (8.4-10.2); CARBON DIOXIDE 28 mmol/L (22-30); CHLORIDE 102 mmol/L (98-107); GLUCOSE 259 mg/dL (75-110); PHOSPHORUS 3.8 mg/dL (2.5-4.5); POTASSIUM 4.1 mmol/L (3.6-5.0); SODIUM 136.8 mmol/L (137-145)
[2018-11-20] MEDS: INSULIN REG, HUMAN 100 UNIT/ML 3 ML VIAL (PYX) SUBCUT SCH ×2 (10:08→11:27)
[2018-11-20] MEDS: INSULIN LISPRO 100 UNIT/ML 3 ML VIAL SUBCUT SCH ×2 (10:08→11:28)
[2018-11-20] MEDS: METOPROLOL TARTRATE 25 MG TABLET PO SCH (10:09)
[2018-11-20] MEDS: FUROSEMIDE 40 MG TABLET PO SCH (10:09)
[2018-11-20] MEDS: DOCUSATE SODIUM 100 MG CAPSULE PO SCH (10:09)
[2018-11-20] MEDS: LISINOPRIL 10 MG TABLET PO SCH (10:09)
[2018-11-20] MEDS: FAMOTIDINE 20 MG TABLET PO SCH (10:09)
[2018-11-20] MEDS: ASPIRIN 81 MG TABLET, CHEWABLE PO SCH (10:10)
[2018-11-20] MEDS: ENOXAPARIN SODIUM INJ 40 MG/0.4 ML DISP.SYRIN SUBCUT SCH (10:10)
--- NOTE | 2018-11-20 11:30 | PDOC DISCHARGE SUMMARY ---
General - Admit/Disc Date/PCP Admission Date/Primary Care Provider: 11/19/18 16:12 We are setting her up with a new tactical/mobile watch officer at discharge. I am going to set her up with Dr. Oliver from pulmonology as she needs a new sleep study. Discharge Date: 11/20/18 - Discharge Diagnosis (1) Uncontrolled diabetes mellitus Is this a current diagnosis for this admission?: Yes Summary: The patient was reinitiated on Lantus 30 units. She states that she used to take Lantus but has not taken it in quite some time which may be why her blood sugar was so uncontrolled. After initiating this dose her blood sugars were still quite high. I added Humalog 10 units 3 times daily before meals and we have fairly good control of her blood sugars. Going to stop her oral medications as she was on metformin, Actos and glipizide with poor control. I will continue her Januvia (2) Uncontrolled hypertension Is this a current diagnosis for this admission?: Yes Summary: Her regimen has been titrated and I have written new prescriptions at discharge. She has just moved to this area from [place] and does not yet have a primary care. We will be assigning one at discharge. Her blood pressures are well controlled at discharge (3) Morbid obesity with BMI of 50.0-59.9, adult Is this a current diagnosis for this admission?: Yes Summary: Certainly it would be of benefit for her to lose weight. She is going to have increasing problems due to her super morbid obesity. (4) Sleep apnea Is this a current diagnosis for this admission?: Yes Summary: She has a CPAP machine at home that she uses religiously however it is about to go out as it is several years old. She needs a new sleep study and machine. I am going to set her up with Dr. Oliver at discharge. (5) Anemia Is this a current diagnosis for this admission?: Yes Summary: This is quite mild and likely an anemia of chronic disease. (6) Do not resuscitate Is this a current diagnosis for this admission?: Yes - Additional Information Resuscitation Status: Do Not Resuscitate Discharge Diet: Diabetic Discharge Activity: Activity As Tolerated, Balance Activity w/Rest, Slowly Increase Activity, Walk Frequently Prescriptions: Insulin Glargine,Hum.rec.anlog [Lantus Insulin 100 Unit/1 ml 10 ml] 30 unit SQ QHS #1 unit Blood-Glucose Meter [Blood Glucose Meter] 1 each MC AC #1 each Docusate Sodium [Colace 100 mg Capsule] 100 mg PO BID #60 capsule Furosemide [Lasix 40 mg Tablet] 40 mg PO DAILY #30 tablet Insulin Lispro [Humalog Insulin (Lispro) 100 unit/mL] 10 unit SUBCUT AC #1 vial Lisinopril [Prinivil 10 mg Tablet] 10 mg PO DAILY #30 tablet Metoprolol Tartrate [Lopressor 25 mg Tablet] 25 mg PO Q12 #60 tablet Home Medications: Albuterol Sulfate [Proair HFA Inhalation Aerosol 8.5 gm MDI] 2 puff IH Q6HP PRN 11/18/18 Ergocalciferol (Vitamin D2) [Drisdol 50,000 unit (1.25MG) Capsule] 50,000 unit PO MO@1000 11/18/18 Liraglutide [Victoza 2-Pablo] 1.8 mg SQ DAILY 11/18/18 Pravastatin Sodium [Pravachol] 40 mg PO DAILY 11/18/18 Tramadol HCl [Ultram 50 mg Tablet] 50 mg PO Q12HP PRN 11/18/18 Aspirin [Aspirin 81 mg Chewable Tablet] 81 mg PO DAILY tab.chew 11/20/18 Blood-Glucose Meter [Blood Glucose Meter] 1 each AC #1 each 11/20/18 Docusate Sodium [Colace 100 mg Capsule] 100 mg PO BID #60 capsule 11/20/18 Furosemide [Lasix 40 mg Tablet] 40 mg PO DAILY #30 tablet 11/20/18 Insulin Glargine,Hum.rec.anlog [Lantus Insulin 100 Unit/1 ml 10 ml] 30 unit SQ QHS #1 unit 11/20/18 Insulin Lispro [Humalog Insulin (Lispro) 100 unit/mL] 10 unit SUBCUT AC #1 vial 11/20/18 Lisinopril [Prinivil 10 mg Tablet] 10 mg PO DAILY #30 tablet 11/20/18 Metoprolol Tartrate [Lopressor 25 mg Tablet] 25 mg PO Q12 #60 tablet 11/20/18 History of Present Illness History of Present Illness: JEROME THAKUR is a 63 year old female who presented to the emergency room with cough and ear pain. During the course of her workup she was found to have severe hyperglycemia. Hospital Course Hospital Course: The patient is a 63-year-old -[place] female with morbid obesity, underlying diabetes mellitus, hypertension and sleep apnea on CPAP. She has known narcolepsy, hyperlipidemia, osteoarthritis. She presented to the emergency room with cough and right ear pain. She was referred for admission as she was found to have a blood sugar of 558. Hemoglobin A1c came back at 10.2. Interim the patient did not have any further issues with cough after she was admitted to the hospital. Her blood pressure was markedly uncontrolled as well and her medications were titrated. She was started back on Lantus and we got her blood sugars under better control when we added short acting mealtime insulin as well. Her blood sugars are stable on the day of discharge. Her blood pressure is much is improved as well. I am going to have her licensed clinical social worker set her up with a new primary care physician and I am also going to have her follow-up with Dr. Oliver as an outpatient as she states her machine is working but has quite a few issues. She likely will need a new sleep study and new machine when she gets out of the hospital. At this point maximum hospital benefit has been reached. The patient will be discharged today in stable condition. Physical Exam Vital Signs: Temp Pulse Resp BP Pulse Ox 98.8 F 73 20 125/47 L 100 11/20/18 08:00 11/20/18 08:00 11/20/18 08:00 11/20/18 08:00 11/20/18 08:00 Intake & Output 11/19/18 11/20/18 11/21/18 06:59 06:59 06:59 Intake Total 2104 1828 Balance 2104 1828 Weight 143.8 kg 144.7 kg General appearance: PRESENT: morbidly obese Head exam: PRESENT: atraumatic, normocephalic Respiratory exam: PRESENT: clear to auscultation tomas, decreased breath sounds - She is diminished in the lower bases bilaterally. ABSENT: rales, rhonchi, wheezes Cardiovascular exam: PRESENT: RRR. ABSENT: diastolic murmur, rubs, systolic murmur GI/Abdominal exam: PRESENT: normal bowel sounds, soft. ABSENT: distended, guarding, mass, organolmegaly, rebound, tenderness Rectal exam: PRESENT: deferred Extremities exam: PRESENT: full ROM. ABSENT: calf tenderness, clubbing, pedal edema Neurological exam: PRESENT: alert, awake, oriented to person, oriented to place, oriented to time, oriented to situation, CN II-XII grossly intact. ABSENT: motor sensory deficit Psychiatric exam: PRESENT: appropriate affect, normal mood. ABSENT: homicidal ideation, suicidal ideation Skin exam: PRESENT: dry, intact, warm. ABSENT: cyanosis, rash Results Laboratory Results: 11/20/18 06:02 11/20/18 06:02 11/20/18 11/20/18 06:02 06:02 WBC 6.6 RBC 3.82 Hgb 10.8 L Hct 33.3 L MCV 87 MCH 28.4 MCHC 32.6 RDW 14.2 H Plt Count 261 Seg Neutrophils % 57.0 Lymphocytes % 31.5 Monocytes % 9.2 Eosinophils % 1.8 Basophils % 0.5 Absolute Neutrophils 3.8 Absolute Lymphocytes 2.1 Absolute Monocytes 0.6 Absolute Eosinophils 0.1 Absolute Basophils 0.0 Sodium 136.8 L Potassium 4.1 Chloride 102 Carbon Dioxide 28 Anion Gap 7 BUN 20 Creatinine 0.74 Est GFR ( Amer) > 60 Est GFR (Non-Af Amer) > 60 Glucose 259 H Calcium 9.1 Phosphorus 3.8 Magnesium 1.9 Albumin 3.1 L 11/17/18 11/17/18 11/17/18 15:07 15:07 20:50 Creatine Kinase 59 67 CK-MB (CK-2) 0.50 NT-Pro-B Natriuret Pep 11/17/18 11/18/18 11/18/18 20:50 04:58 04:58 Creatine Kinase 54 CK-MB (CK-2) 0.54 0.48 NT-Pro-B Natriuret Pep 64 Impressions: Chest X-Ray 11/17/18 00:00 IMPRESSION: NO ACUTE RADIOGRAPHIC FINDING IN THE CHEST. Qualifiers - * PATIENT BEING DISCHARGED WITH ANY OF THE FOLLOWING DIAGNOSIS: No
[2018-11-20] MEDS: INSULIN GLARGINE,HUM.REC.ANLOG 1,000 UNIT/10 ML VIAL SUBCUT SCH (11:40)
[2018-11-20 12:25] VITALS: BP 111/72
== END 2018-11-20 13:40 | disposition home or self-care (01) | DRG 638 ==
LOC: ER 14:17 → EH 18:25 → 4N 11-18 02:45 → OBSVTOIN 11-19 16:12
PROVIDERS: ADMIT Internal Medicine; ATTEND Internal Medicine
PROC: 5A09457 Assistance with Respiratory Ventilation, 24-96 Consecutive Hours, Continuous Positive Airway Pressure (ICD-10-PCS; principal; 2018-11-17)
DX: E11.65 Type 2 diabetes mellitus with hyperglycemia (principal); Z68.43 Body mass index [BMI] 50.0-59.9, adult; I10 Essential (primary) hypertension; G47.30 Sleep apnea, unspecified; D63.8 Anemia in other chronic diseases classified elsewhere; Z66 Do not resuscitate; M19.90 Unspecified osteoarthritis, unspecified site; G47.419 Narcolepsy without cataplexy; F41.9 Anxiety disorder, unspecified; E66.01 Morbid (severe) obesity due to excess calories; Z79.4 Long term (current) use of insulin; Z79.899 Other long term (current) drug therapy; Z79.82 Long term (current) use of aspirin; Z90.710 Acquired absence of both cervix and uterus; Z87.891 Personal history of nicotine dependence; Z83.3 Family history of diabetes mellitus
CPT/HCPCS: 36415; 71046; 80053; 80061; 80069; 81001; 82550; 82553; 82803; 82962; 83036; 83690; 83735; 83880; 84443; 85025; 87086; 87088; 93005; 93010; 94660; 96360; 99285; G0378; J1650; J1815; J3490; J7030

== ENCOUNTER → 2019-01-01 | Outpatient (CLI) | payer BC | LOC: WI 10:37 | PROVIDERS: ATTEND Family Medicine | DX: Z12.31 Encounter for screening mammogram for malignant neoplasm of breast (principal) | CPT/HCPCS: 77067 ==

== ENCOUNTER 2019-01-13 09:55 | Day surgery (SDC) | payer BC ==
[~2019-01-13 09:55] MED LIST: PROPOFOL INJ 200 MG/20 ML VIAL IV ONE
[2019-01-13] MEDS ORDERED: PROPOFOL INJ 200 MG/20 ML VIAL IV ONE (12:10)
--- NOTE | 2019-01-13 14:07 | Operative Report ---
Operative Report DATE OF SURGERY: 01/13/19 Operative Report: The risks, benefits and alternatives of the procedure including the risk of bleeding, perforation requiring surgery have been explained to the patient in detail and informed consent has been obtained. Patient is brought back to the endoscopy suite and placed in the left, lateral decubital position. Timeout was called. Propofol medication is administered. A rectal examination is done which did not reveal any masses, tears or fissures. An Olympus videoscope was introduced into the patient's rectum. The scope was then carefully advanced all the way to the cecum. The cecum was identified by the usual anatomical landmarks including the ileocecal valve as well as the appendiceal office. Photodocumentation is obtained. The scope was then sequentially pulled back via the various segments of the colon including the ascending colon, hepatic flexure , transverse colon, splenic flexure, descending colon and finally into the rectosigmoid portions of the colon. Retroflexion maneuver is performed. PREOPERATIVE DIAGNOSIS: Colorectal cancer screening. POSTOPERATIVE DIAGNOSIS: Diverticulosis without any evidence of diverticulitis. Internal hemorrhoids. Mild inflammation noted on the right-hand side of the colon status post biopsy OPERATION: Colonoscopy with biopsy SURGEON: DEMARIO BRANDON ANESTHESIA: LMAC TISSUE REMOVED OR ALTERED: As noted above. COMPLICATIONS: None. ESTIMATED BLOOD LOSS: None. INTRAOPERATIVE FINDINGS: As noted above. PROCEDURE: Patient tolerated the procedure well. No immediate postprocedure complications are noted. Patient discharged in good condition. Discharge date 01/13/2019. Discharge diet: Regular. Discharge activity: Regular. 2 to 3-week follow-up to discuss findings. Patient is instructed to call the office or proceed to the emergency room should there be any further problems or questions. We will went to pathology. If pathology is negative consideration for 10-year surveillance colonoscopy
[2019-01-13 15:22] VITALS: BP 131/66
== END 2019-01-13 13:30 | disposition home or self-care (01) ==
LOC: END 09:55
PROVIDERS: ATTEND Internal Medicine Gastroenterology
DX: Z12.11 Encounter for screening for malignant neoplasm of colon (principal); K57.30 Diverticulosis of large intestine without perforation or abscess without bleeding; K64.8 Other hemorrhoids; K52.9 Noninfective gastroenteritis and colitis, unspecified; J45.909 Unspecified asthma, uncomplicated; I10 Essential (primary) hypertension; G47.33 Obstructive sleep apnea (adult) (pediatric); E66.01 Morbid (severe) obesity due to excess calories; E11.65 Type 2 diabetes mellitus with hyperglycemia; E78.2 Mixed hyperlipidemia; Z79.84 Long term (current) use of oral hypoglycemic drugs; Z79.4 Long term (current) use of insulin; Z68.43 Body mass index [BMI] 50.0-59.9, adult; Z87.891 Personal history of nicotine dependence; Z79.899 Other long term (current) drug therapy; Z79.51 Long term (current) use of inhaled steroids
CPT/HCPCS: 45380; 82962; 88305 ×2; J2704

== ENCOUNTER → 2019-11-11 | Outpatient (CLI) | payer MEDICARE ==
--- NOTE | 2019-11-11 17:42 | RADIOLOGY REPORT (SQ) ---
EXAM DESCRIPTION: C SP 4 OR 5 VIEWS COMPLETED DATE/TIME: 11/11/2019 5:16 pm REASON FOR STUDY: CERVICAL RADICULOPATHY;LUMBAR RADIUCULOPATHY,CHRONIC M54.12 RADICULOPATHY, CERVIC AL REGION M54.16 RADICULOPATHY, LUMBAR REGION COMPARISON: None. NUMBER OF VIEWS: Five views. TECHNIQUE: AP, lateral, obliques and odontoid radiographic images acquired of the cervical spine. LIMITATIONS: None. FINDINGS: MINERALIZATION: Normal. ALIGNMENT: Anatomic. VERTEBRAE: Vertebral bodies of normal height. DISCS: No significant osteophytes or sclerosis. Disc height maintained. FORAMINA: Mild left C3-4, C4-5 and C5-6 foraminal narrowing from facet hypertrophy. LATERAL AND POSTERIOR ELEMENTS: Facets, lateral masses and spinous processes without significant find ings. HARDWARE: None in the spine. SOFT TISSUES: No masses or calcifications. Lung apices clear. OTHER: No other significant finding. IMPRESSION: Mild left-sided facet arthropathy with foraminal narrowing as above TECHNICAL DOCUMENTATION: JOB ID: [id number] [employer]- All Rights Reserved Reading location - IP/workstation name: [email or web address]
--- NOTE | 2019-11-11 17:44 | RADIOLOGY REPORT (SQ) ---
EXAM DESCRIPTION: LUMBAR SPINE COMPLETE COMPLETED DATE/TIME: 11/11/2019 5:16 pm REASON FOR STUDY: CERVICAL RADICULOPATHY;LUMBAR RADIUCULOPATHY,CHRONIC M54.12 RADICULOPATHY, CERVIC AL REGION M54.16 RADICULOPATHY, LUMBAR REGION COMPARISON: None. NUMBER OF VIEWS: Five views including obliques. TECHNIQUE: AP, lateral, oblique, and sacral radiographic images acquired of the lumbar spine. LIMITATIONS: None. FINDINGS: MINERALIZATION: Normal. SEGMENTATION: Normal. No transitional anatomy. ALIGNMENT: Normal. VERTEBRAE: Maintained height. No fracture or worrisome bone lesion. DISCS: Preserved height. No significant osteophytes or end plate irregularity. POSTERIOR ELEMENTS: Pedicles and facets are intact. No pars defect or posterior arch defects. There diffuse facet arthropathy with joint space narrowing and bony sclerosis. HARDWARE: None in the spine. PARASPINAL SOFT TISSUES: Normal. PELVIS: Mild bilateral SI joint sclerosis OTHER: No other significant finding. IMPRESSION: Diffuse lumbar facet arthropathy and SI joint sclerosis TECHNICAL DOCUMENTATION: JOB ID: [id number] [employer]- All Rights Reserved Reading location - IP/workstation name: [email or web address]
== END ==
LOC: OD 16:06
PROVIDERS: ATTEND Family Medicine
DX: M54.12 Radiculopathy, cervical region (principal); M54.16 Radiculopathy, lumbar region
CPT/HCPCS: 72050; 72110